=== PATIENT | female | born 1995 | race Caucasian/White ===

== ENCOUNTER 2017-09-08 09:12 | Emergency (ER) | payer OTHER ==
[2017-09-08 09:27] VITALS: BP 130/83
[2017-09-08 09:31] LABS: BILIRUBIN,URINE NEGATIVE (NEGATIVE); KETONES,URINE (UA) NEGATIVE (NEGATIVE); LEUKOCYTE ESTERASE, URINE NEGATIVE (NEGATIVE); OCCULT BLOOD,URINE NEGATIVE (NEGATIVE); PROTEIN,URINE TRACE mg/dL (NEGATIVE)
[2017-09-08 09:44] LABS: CLARITY,URINE CLEAR (CLEAR)
[2017-09-08 09:45] LABS: BACTERIA,URINE Moderate /HPF (None Seen); HCG UR QUAL NEGATIVE; RBC,URINE 0-5 /HPF (0-5); SQUAMOUS EPITHELIAL CELL,UR MOD Squamous (<= Few)
--- NOTE | 2017-09-08 10:02 | ED Physician Documentation ---
History of Present Illness - Stated complaint Stated Complaint: BLOOD IN URINE - Chief complaint Chief Complaint: UTI - Additonal information Additional information: hx from pt 22 y/o healthy AD [place] female to ED with pelvic pain, blood with wiping, dysuria, flank pain' states she went to [facility], did not see a provider, went directly to lab, gave a urine and the lab gave her an antibiotiic she doesn't know the name of and didnt bring with her and pyridium which isnt helping Review of Systems Constitutional: denies: Fever, Chills GI: reports: Abdominal Pain : reports: Dysuria, Discharge, Vaginal bleeding. denies: Now EGA Musculoskeletal: reports: Back pain Immunocompromised: denies: Immunocompromised PD PAST MEDICAL HISTORY - Past Medical History Past Medical History: Yes Psych: Depression Other Past Medical History: seasonal allergies - Present Medications Home Medications: Ambulatory Orders Medication Instructions Recorded Confirmed Antibiotic 09/08/17 Cephalexin [Keflex] 500 mg PO Q6H #28 capsule 09/08/17 Loratadine [Claritin] 10 mg PO 09/08/17 Phenazopyridine [Pyridium] 100 mg PO 09/08/17 Sertraline [Zoloft] 25 mg PO DAILY 09/08/17 09/08/17 - Allergies Allergies/Adverse Reactions: Allergies Allergy/AdvReac Type Severity Reaction Status Date / Time No Known Drug Allergies Allergy Verified 09/08/17 09:22 - Social History Does the pt smoke?: No Smoking Status: Never smoker Does the pt drink ETOH?: No Does the pt have substance abuse?: No - Immunizations Immunizations are current?: Yes - POLST Patient has POLST: No PD ED PE NORMAL - Vitals Vital signs reviewed: Yes - Neck Neck: Supple, no meningeal sign - Cardiac Cardiac: RRR - Respiratory Respiratory: No respiratory distress, Clear bilaterally - Abdomen Abdomen: Soft, Other (suprapubic and some RLQ pain s rebound and guarding) - 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, Qual NEGATIVE PD MEDICAL DECISION MAKING - ED course ED course: d/w [facility] pt was seen by provider has UA + leuk est abd WBC, culture and sensitivities still pending also was tested for STDs and neg GC and chlamydia exam indicates cervicitis might be cause of sx - sent wet prep if wet prep neg will change ab to keflex (for a week since not improving with other outpt meds so far)as she is not improving on macrobid and no cx results yet to assist decision making - and wait for all cx to come back Departure - Departure Disposition: Home, Self Care Clinical Impression: Cystitis Condition: Good Instructions: ED UTI Cystitis Female Prescriptions: Cephalexin [Keflex] 500 mg PO Q6H #28 capsule Comments: The symptoms seem to be due to either a urine infection or cervicitis (pelvic infection) The pelvic results that are available today were negative for trichomonas and bacterial vaginosis We will need to wait for the cultures to be resulted to know for sure about other pelvic infections or the cause of the urine infection For now I have changed your antibiotic from macrobid to keflex. If the pyridium is not helping you can stop taking it We will call you if the cultures are positive and you need a change of treatment You can also have your doctor at [facility] call for the results If the abdominal pain worsens especially in the right lower quadrant, that could suggest something else going on like appendicitis - please [place] or come back to the ED Forms: Activity restrictions
[2017-09-08] MEDS ORDERED: ACETAMINOPHEN 325 MG TABLET PO STA (10:03)
[2017-09-08] MEDS ORDERED: IBUPROFEN 400 MG TABLET PO STA (10:03)
== END 2017-09-08 11:54 | disposition home or self-care (01) ==
LOC: ED 09:12
DX: N30.90 Cystitis, unspecified without hematuria (principal)
CPT/HCPCS: 81001; 81025; 87210; 87491; 87591; 99283; A9270; 81003; 87086

== ENCOUNTER 2018-03-07 09:56 | Emergency (ER) | payer OTHER ==
[2018-03-07] MEDS ORDERED: KETOROLAC 60 MG/2 ML VIAL IM STA (12:18)
[2018-03-07] MEDS ORDERED: oxyCODONE 5 MG TABLET PO STA (12:19)
--- NOTE | 2018-03-07 12:21 | ED Physician Documentation ---
History of Present Illness - Stated complaint Stated Complaint: HIP/BACK PX - Chief complaint Chief Complaint: Ext Problem - History obtained from History obtained from: Patient - History of Present Illness Timing: Today Pain level max: 8 Pain level now: 8 Quality: aching, dull Improved by: remaining still Worsened by: movement - Additonal information Additional information: Patient is a 22-year-old female who presents to the emergency department with low back pain rating to the bilateral lower extremities for the past day. Does not recall any injury. No loss of bowel or bladder control. Worse with standing and walking. No history of back problems in the past. Did have an IUD placed approximately 3-4 weeks ago and states she has had problems with IUDs in the past. Denies any urinary symptoms. Denies any trauma. Denies any increased strain. States she normally gets hip pain from running. She is in the [place]. Has not taken anything for the pain today. Denies any drug use. Review of Systems Ten Systems: 10 systems reviewed and negative Constitutional: denies: Fever, Chills Ears: denies: Ear pain Nose: denies: Rhinorrhea / runny nose, Congestion Throat: denies: Sore throat Cardiac: denies: Chest pain / pressure Respiratory: denies: Cough GI: reports: Abdominal Pain (states lower abdominal cramping today), Nausea. denies: Vomiting : denies: Dysuria, Frequency, Hesitancy, Discharge, Vaginal bleeding Skin: denies: Rash Musculoskeletal: denies: Neck pain Neurologic: denies: Focal weakness, Numbness, Headache PD PAST MEDICAL HISTORY - Past Medical History Past Medical History: Yes Psych: Depression - Past Surgical History Past Surgical History: No - Present Medications Home Medications: Ambulatory Orders Medication Instructions Recorded Confirmed Cetirizine [ZyrTEC] 03/07/18 Citalopram [CeleXA] 03/07/18 Cyclobenzaprine [Flexeril] 10 mg PO TID PRN #20 tablet 03/07/18 Hydrocodone/Acetaminophen 1 - 2 each PO Q6H PRN #14 tablet 03/07/18 [Hydrocodon-Acetaminophen 5-325] Meloxicam [Mobic] 15 mg PO DAILY PRN #20 tablet 03/07/18 - Allergies Allergies/Adverse Reactions: Allergies Allergy/AdvReac Type Severity Reaction Status Date / Time No Known Drug Allergies Allergy Verified 03/07/18 10:14 - Social History Does the pt smoke?: No Smoking Status: Never smoker Does the pt drink ETOH?: Yes ETOH Use: Wine Does the pt have substance abuse?: No - Immunizations Immunizations are current?: Yes - POLST Patient has POLST: No PD ED PE NORMAL - Vitals Vital signs reviewed: Yes - General General: Alert and oriented X 3, Well developed/nourished, Other (appears uncomfortable) - HEENT HEENT: PERRL, Moist mucous membranes - Neck Neck: Supple, no meningeal sign - Cardiac Cardiac: RRR, Strong equal pulses - Respiratory Respiratory: No respiratory distress, Clear bilaterally - Abdomen Abdomen: Soft, Non distended, Other (Mild tenderness to palpation across the lower abdomen. No peritoneal signs) - Back Back: Other (No midline tenderness to palpation or percussion. Does have paraspinal spasm left greater than right.) - Derm Derm: Warm and dry - Extremities Extremities: No tenderness to palpate, No calf tenderness / cord, Other (normal bilateral lower extremity patellar and ankle jerk reflexes. Normal great toe extension bilaterally. 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, No motor deficit, No sensory deficit - Psych Psych: Normal mood, Normal affect Results - Vitals Vitals: Vital Signs - 24 hr 03/07/18 03/07/18 10:12 13:05 Temperature 36.8 C 36.6 C Heart Rate 77 71 Respiratory 20 18 Rate Blood Pressure 102/66 114/62 O2 Saturation 99 99 Oxygen O2 Source Room air - Labs Labs: Laboratory Tests 03/07/18 03/07/18 03/07/18 12:24 12:36 12:36 WBC 7.0 RBC 4.56 Hgb 14.6 Hct 41.4 MCV 90.7 MCH 32.0 H MCHC 35.2 RDW 12.8 Plt Count 170 MPV 8.4 Neut # (Auto) 4.3 Lymph # (Auto) 1.9 [place] # (Auto) 0.5 Eos # (Auto) 0.3 Baso # (Auto) 0.0 Absolute Nucleated RBC 0.01 Nucleated RBC % 0.1 Sodium 136 Potassium 3.5 Chloride 102 Carbon Dioxide 25 Anion Gap 9.0 BUN 10 Creatinine 0.8 Estimated GFR (MDRD) 89 Glucose 107 H Calcium 9.1 Total Bilirubin 0.6 AST 19 ALT 16 Alkaline Phosphatase 53 Total Protein 7.6 Albumin 4.3 Globulin 3.3 Albumin/Globulin Ratio 1.3 Lipase 28 Urine Color YELLOW Urine Clarity SL. CLOUDY Urine pH 6.0 Ur Specific [place] 1.015 Urine Protein NEGATIVE Urine Glucose (UA) NEGATIVE Urine Ketones NEGATIVE Urine Occult Blood TRACE-INTA Urine Nitrite NEGATIVE Urine Bilirubin NEGATIVE Urine Urobilinogen 0.2 (NORMAL) Ur Leukocyte Esterase NEGATIVE Urine RBC 0-5 Urine WBC 0-3 Ur Squamous Epith Cells MOD Squamous H Amorphous Sediment Few Urine Bacteria Moderate H Ur Microscopic Review INDICATED Urine Culture Comments NOT INDICATED Urine HCG, Qual NEGATIVE PD MEDICAL DECISION MAKING - ED course Complexity details: reviewed results, re-evaluated patient, considered differential (no cauda equina, no spinal epidural abscess, no fracture, no aortic dissection or evidence of aneursym rupture), d/w patient ED course: Patient is a 22-year-old female presents to the emergency department with back pain. Has left greater than right paraspinal spasm. No midline tenderness to palpation or percussion. Bedside ultrasound was utilized and confirmed her IUD is in her uterus, appropriately positioned. No acute laboratory findings or urinalysis findings. Pain well controlled. Ambulating well. No acute neurological deficits. Will place on pain medication for the next few days and see how she progresses. I will have her follow-up closely with her PCM. Patient counseled regarding signs and symptoms for which I believe and urgent re -evaluation would be necessary. Patient with good understanding of and agreement to plan and is comfortable going home at this time This document was made in part using voice recognition software. While efforts are made to proofread this document, sound alike and grammatical errors may occur. - Sepsis Event Vital Signs: Vital Signs - 24 hr 03/07/18 03/07/18 10:12 13:05 Temperature 36.8 C 36.6 C Heart Rate 77 71 Respiratory 20 18 Rate Blood Pressure 102/66 114/62 O2 Saturation 99 99 Oxygen O2 Source Room air Departure - Departure Disposition: 01 Home, Self Care Clinical Impression: Back spasm Sciatica Qualifiers: Laterality: bilateral Qualified Code(s): M54.31 - Sciatica, right side Condition: Good Instructions: ED Spasm Back No Trauma Follow-Up: MARIUM GUSTAFSON MD [Primary Care Provider] - Within 3 Days Prescriptions: Cyclobenzaprine [Flexeril] 10 mg PO TID PRN #20 tablet PRN Reason: Spasms Hydrocodone/Acetaminophen [Hydrocodon-Acetaminophen 5-325] 1 - 2 each PO Q6H PRN #14 tablet PRN Reason: pain Meloxicam [Mobic] 15 mg PO DAILY PRN #20 tablet PRN Reason: pain Comments: Return if you worsen. You should follow up with your doctor for further care. Do not drink alcohol or drive while on narcotic pain medicine. Note that many narcotic pain relievers also contain tylenol/acetaminophen. Please ensure that your total dose of acetaminophen from all sources does not exceed 3 grams (3000mg) per day. You may constipated on this medication, take a stool softener such as "Colace" twice a day while you are on it. Also recommend a [id number] laxative such as senna or MiraLAX any day that you do not have a bowel movement. If you received narcotic pain medication in the emergency department, do not drive or operate machinery for the next 24 hours. Forms: Activity restrictions Discharge Date/Time: 03/07/18 13:37
[2018-03-07 12:39] LABS: BASOPHILS % (AUTO) 0.5 %; EOSINOPHILS # (AUTO) 0.3 10^3/uL (0.0-0.7); EOSINOPHILS % (AUTO) 4.1 %; HGB - HEMOGLOBIN 14.6 g/dL (12.0-16.0); LYMPHOCYTES # (AUTO) 1.9 10^3/uL (1.5-3.5); LYMPHOCYTES % (AUTO) 27.3 %; MEAN CORPUSCULAR HGB CONC 35.2 g/dL (32.0-36.0); MEAN CORPUSCULAR VOLUME 90.7 fL (81.0-99.0); MEAN PLATELET VOLUME 8.4 fL (7.9-10.8); MONOCYTES # (AUTO) 0.5 10^3/uL (0.0-1.0); MONOCYTES % (AUTO) 6.7 %; NEUTROPHILS # (AUTO) 4.3 10^3/uL (1.5-6.6); NEUTROPHILS % (AUTO) 61.4 %; PLT - PLATELET COUNT 170 10^3/uL (130-450); RED BLOOD COUNT 4.56 10^6/uL (4.20-5.40); RED CELL DISTRIBUTION WIDTH 12.8 % (12.0-15.0)
[2018-03-07 12:49] LABS: BILIRUBIN,URINE NEGATIVE (NEGATIVE); GLUCOSE, URINE (UA) NEGATIVE (NEGATIVE); KETONES,URINE (UA) NEGATIVE (NEGATIVE); LEUKOCYTE ESTERASE, URINE NEGATIVE (NEGATIVE); NITRITE,URINE NEGATIVE (NEGATIVE); OCCULT BLOOD,URINE TRACE-INTA (NEGATIVE); PROTEIN,URINE NEGATIVE (NEGATIVE); UROBILINOGEN,URINE 0.2 (NORMAL) E.U./dL (NORMAL)
[2018-03-07 12:51] LABS: CLARITY,URINE SL. CLOUDY (CLEAR); HCG UR QUAL NEGATIVE
[2018-03-07 12:52] LABS: ALBUMIN 4.3 g/dL (3.2-5.5); ALBUMIN/GLOBULIN RATIO 1.3 (1.0-2.2); BILIRUBIN,TOTAL 0.6 mg/dL (0.2-1.0); CALCIUM 9.1 mg/dL (8.5-10.3); CREATININE 0.8 mg/dL (0.4-1.0); TOTAL PROTEIN 7.6 g/dL (6.7-8.2)
[2018-03-07 12:56] LABS: AMORPHOUS SEDIMENT,UR Few /LPF; BACTERIA,URINE Moderate /HPF (None Seen); RBC,URINE 0-5 /HPF (0-5); SQUAMOUS EPITHELIAL CELL,UR MOD Squamous (<= Few)
[2018-03-07 13:05] VITALS: BP 114/62
== END 2018-03-07 13:37 | disposition home or self-care (01) ==
LOC: MERGE 09:56 → ED 09:56
DX: M62.838 Other muscle spasm (principal); M54.31 Sciatica, right side; Z97.5 Presence of (intrauterine) contraceptive device
CPT/HCPCS: 36415; 80053; 81001; 81025; 83690; 85025; 96372; 99283; A9270; 81003; 87086